=== PATIENT | female | born 1930 ===

== ENCOUNTER 2017-02-11 15:17 | Outpatient (CLI) | payer MEDICARE, OTHER | END 2017-02-11 15:18 | LOC: POD 15:17 | PROVIDERS: ATTEND Podiatrist | DX: B35.1 Tinea unguium (principal); I87.323 Chronic venous hypertension (idiopathic) with inflammation of bilateral lower extremity | CPT/HCPCS: G0463 ==

== ENCOUNTER 2017-03-22 13:47 | Outpatient (CLI) | payer MEDICARE, OTHER | END 2017-03-22 13:50 | LOC: POD 13:47 | PROVIDERS: ATTEND Podiatrist | DX: L89.893 Pressure ulcer of other site, stage 3 (principal) | CPT/HCPCS: 11042; G0463 ==

== ENCOUNTER 2017-05-03 13:50 | Outpatient (CLI) | payer MEDICARE, OTHER | END 2017-05-03 13:52 | LOC: POD 13:50 | PROVIDERS: ATTEND Podiatrist | DX: B35.1 Tinea unguium (principal); M79.674 Pain in right toe(s); M79.675 Pain in left toe(s) | CPT/HCPCS: 11721; G0463 ==